=== PATIENT | female | born 1965 | race Two or more races ===

== ENCOUNTER 2025-01-20 20:47 | Emergency (ER) | payer BC, OTHER ==
[~2025-01-20] VITALS: Ht 165.1 cm; Wt 90.3 kg
[2025-01-20] MEDS ORDERED: NAPROXEN 500 MG TABLET ONE (21:08)
[2025-01-20] MEDS ORDERED: ACETAMINOPHEN 500 MG TABLET ONE (21:08)
[2025-01-20] MEDS: NAPROXEN 500 MG TABLET PO ONE (21:12)
[2025-01-20] MEDS: ACETAMINOPHEN 500 MG TABLET PO ONE (21:12)
[2025-01-20 21:32] VITALS: BP 128/72; TEMP 97.8; O2SAT 99
== END 2025-01-20 21:32 | disposition home or self-care (01) ==
LOC: ER 20:53
DX: M79.604 Pain in right leg (principal); E11.9 Type 2 diabetes mellitus without complications; W18.39XA Other fall on same level, initial encounter; Y93.89 Activity, other specified; Y92.89 Other specified places as the place of occurrence of the external cause; Y99.8 Other external cause status
CPT/HCPCS: 73590; A4606; A4663; A9150

== ENCOUNTER 2025-01-28 10:41 | Emergency (ER) | payer BC, OTHER ==
[~2025-01-28] VITALS: Ht 165.1 cm; Wt 90.3 kg
[2025-01-28] MEDS ORDERED: FLAS1KIT2 TP (12:10)
[2025-01-28] MEDS ORDERED: FLAS1EAC2 TP (12:10)
[2025-01-28 12:27] VITALS: BP 150/75; TEMP 98.2; O2SAT 98
== END 2025-01-28 12:28 | disposition home or self-care (01) ==
LOC: ER 10:41
DX: S80.11XA Contusion of right lower leg, initial encounter (principal); E11.9 Type 2 diabetes mellitus without complications; W01.0XXA Fall on same level from slipping, tripping and stumbling without subsequent striking against object, initial encounter; Y93.89 Activity, other specified; Y92.89 Other specified places as the place of occurrence of the external cause; Y99.8 Other external cause status
CPT/HCPCS: A4606; A4663